=== PATIENT | female | born 1985 | race Caucasian/White ===

== ENCOUNTER 2024-02-02 13:18 | Emergency (ER) | payer OTHER, SELFPAY ==
[2024-02-02 13:24] VITALS: BP 137/76
--- NOTE | 2024-02-02 14:15 | ED.GENMED ---
History of Present Illness
General
Chief Complaint: Fever
Time Seen by Provider: 02/02/24 14:12
Travel History
Have you had any contact with someone who has COVID-19?: No
Do you have any symptoms of coronavirus? Fever > 100 degrees, chills, cough, shortness of breath, sore throat, loss of taste or smell, muscle aches, or headache?: Yes
Symptoms:: fever
History of Present Illness
History of Present Illness:
HPI: Patient presents with fever and URI symptoms associated with chest discomfort. Patient was sent here by urgent care because she had pleuritic chest. She reportedly had a COVID test at home that was negative and a flu test today at urgent care
that was negative. She says that she had a temperature of 102 �F earlier today
EXAM:
GENERAL: Well appearing in no distress
HEENT: Moist oral mucosa
CARDIOVASCULAR: No murmurs, normal heart rate, regular rhythm, No chest wall tenderness
PULMONARY: No respiratory distress, breath sounds are clear and equal
ABDOMEN: Soft with no peritoneal signs, no tenderness
NEUROLOGIC: Excellent strength all extremities, no coordination deficits
PSYCHIATRIC: Appropriate mental status, normal insight and judgement
EXTREMITIES: Nontender, no edema, moves all extremities equally
SKIN: No rash, no lesions
TIME OF INITIAL ENCOUNTER: 2:15 PM
NUMBER AND COMPLEXITY OF PROBLEMS ADDRESSED AT THE ENCOUNTER
� Chronic conditions affecting care: No significant chronical medical issues
� Acute Exacerbation and/or Progression of Chronic Illness: This is an acute problem
� Differential Diagnosis includes: Viral syndrome, pneumonia, PE, chest wall pain
AMOUNT AND/OR COMPLEXITY OF DATA TO BE REVIEWED AND ANALYZED
� I performed an independent evaluation of and my interpretation is:
EKG: Sinus 117, nonspecific ST abnormality with no old to compare
CT:
X-rays: Chest x-ray shows no acute abnormality
Laboratory Studies: White count is normal, hemoglobin normal, chemistries unremarkable, D-dimer reassuring
Other:
� Review of other/old records: I reviewed records, the patient had C-sections a few years ago
� Clinical information was obtained by an independent historian: None needed
� Prescriptions/Medications Considered but not given: Consider prescription for NSAIDs however the patient is already taking ibuprofen
� Further testing considered but not performed:
RISK OF COMPLICATIONS AND/OR MORBIDITY OR MORTALITY OF PATIENT MANAGEMENT
� Social determinants of health affecting care: Lives at home
� Discussion with other providers:
� Escalation of care including admission/observation vs risk of discharge considered: The patient was febrile earlier and reportedly had negative COVID and flu testing. She is tachycardic with clear lungs and some pleuritic
pain�will check D-dimer. Toradol was also given. On reassessment at 4:15 PM, the patient's heart rate has improved. D-dimer reassuring. The patient states she only has symptoms when she takes a deep breath. She reports no significant shortness
of breath. Her room air sats have been about 98%. She was given IV fluids and Toradol earlier and heart rate has improved.
Past History
Past History
ED Past Medical History: None
Social History
Tobacco: Non-smoker
Alcohol: None
Family History
Family History: Negative Diabetes, Hypertension or Early CAD
Phy Exam
Physical Exam
Physical Exam:
See HPI
Course
Orders/Labs/Results
Orders:
Orders
02/02/24 13:27
Electrocardiogram (*1) Urgent
Reason for Study: Chest Pain
EKG- Treatment ONCE
02/02/24 14:22
0.9% Sodium Chloride 1000 ml [Nss] 1,000 ml IV BOLUS
Ketorolac [Toradol] 15 mg IV NOW STA
CR Chest - 2 Views Urgent
Comment:
Reason For Exam: sob
02/02/24 15:13
Basic Metabolic Panel Urgent
Complete Blood Count/With Diff Urgent
D-Dimer Urgent
Abnormal Lab Results
02/02/24
15:13
MCV 80.1 L fL
(81.0-99.0)
MPV 11.3 H fL
(7.4-10.4)
Absolute Neuts (auto) 8.2 H 10^3/uL
(1.4-6.5)
Absolute Lymphs (auto) 0.8 L 10^3/uL
(1.2-3.4)
Neutrophils % 84.9 H %
(42.2-75.2)
Lymphocytes % 8.3 L %
(20.5-51.1)
Glucose 124 H mg/dl
(70-99)
02/02/24 15:13
02/02/24 15:13
Vital Signs
Initial and Last Documented VS:
Initial Vital Signs
Temp Pulse Resp BP Pulse Ox
99.1 F 122 16 137/76 98
02/02/24 13:24 02/02/24 13:24 02/02/24 13:24 02/02/24 13:24 02/02/24 13:24
Last Documented Vital Signs
Temp Pulse Resp BP Pulse Ox
99.1 F 95 18 115/70 98
02/02/24 13:24 02/02/24 15:17 02/02/24 15:17 02/02/24 15:17 02/02/24 15:17
*Critical Care Note
Total Time (30-74mins, 75-104mins- exclusive of procedures): Not Applicable
ED Attending Note
-
Portions of this chart may have been created with voice recognition software.� Occasional wrong word or��sound alike� substitutions may have occurred due to the inherent limitations of voice recognition software.
Discharge Plan
Departure
Patient Disposition: Home (Routine Discharge)
Date of Disposition: 02/02/24
Time of Disposition: 16:21
Patient with high blood pressure during this ER visit?: Yes
Discharge Problem:
Anterior chest wall pain
Prescriptions:
No Action
esomeprazole magnesium [Nexium] 40 MG capsule,delayed release(DR/EC)
40 mg PO DAILY
Calcium Gummies
500 mg PO DAILY
Iron Tab
27 mg PO DAILY
Gummies
1 PO DAILY AT 0700
ibuprofen 600 MG tablet
600 mg PO Q6HPRN PRN (Reason: cramps) 0RF
acetaminophen 325 MG capsule
325 mg PO Q4HPRN PRN (Reason: mild pain) Qty: 30 0RF
acetaminophen 325 MG tablet
650 mg PO Q4HPRN PRN (Reason: mild pain) 0RF
sennosides-docusate sodium 1 TABLET tablet
1 tab PO DAILYPRN PRN (Reason: constipation) 0RF
Referrals:
Rommel Mansfield MD [Family Provider] -
Activity Restrictions/Additional Instructions:
Please follow-up your primary care doctor. I recommend 3-4 lexp-aue-hjvfqpc ibuprofen (Motrin) every 8 hours with food for a few days. Return here if worse. Your white blood cell count is normal, your D-dimer is low meaning that there is no sign
of blood clot in your lungs. The radiologist read your chest x-ray is no sign of pneumonia.
Interventions
Interventions:
*Risk Screen - Suicide Last Done: 02/02/24 15:32
*General Assessment Last Done: 02/02/24 15:32
*Neglect/Abuse Screening Last Done: 02/02/24 15:32
ED- Fall Risk Assessment Last Done: 02/02/24 15:20
*ED COVID-19 Vaccine History Last Done: 02/02/24 13:24
ED- Neurological Assessment Last Done: 02/02/24 15:20
ED-Skin Assessment Last Done: 02/02/24 15:20
[2024-02-02] MEDS: TORADOL 15 MG IV (15:14)
[2024-02-02] MEDS: NSS 1000 IV (15:14)
[2024-02-02 15:17] VITALS: BP 115/70
[2024-02-02 15:26] LABS: % Basophils 0.3 % (0-2); % Eosinophils 0.4 % (0-6); % Immature Granulocytes 0.2 % (0-0.5); % Lymphocytes 8.3 % (20.5-51.1); % Monocytes 5.9 % (1.7-9.3); % Neutrophils 84.9 % (42.2-75.2); Absolute Lymphocytes 0.8 10^3/uL (1.2-3.4); Absolute Monocytes 0.6 10^3/uL (0.1-0.6); Absolute Neutrophils 8.2 10^3/uL (1.4-6.5); Hematocrit 37.5 % (37.0-47.0); Hemoglobin 12.8 g/dL (12.0-16.0); Mean Corp Hgb Conc. 34.1 g/dL (33.0-37.0); Mean Corpuscular Hgb 27.4 pg (27.0-31.0); Mean Corpuscular Volume 80.1 fL (81.0-99.0); Mean Platelet Volume 11.3 fL (7.4-10.4); Nucleated Red Blood Cells % 0 %; Platelet Count 171 10^3/uL (130-400); Red Blood Cell Count 4.68 10^6/uL (4.20-5.40); White Blood Cell Count 9.7 10^3/uL (4.8-10.8)
[2024-02-02 15:38] LABS: Blood Urea Nitrogen 10 mg/dl (7-17); Calcium 9.2 mg/dl (8.4-10.2); Carbon Dioxide 26 mmol/L (22-30); Chloride 105 mmol/L (98-107); Glucose 124 mg/dl (70-99); Potassium 4.5 mmol/L (3.5-5.1); Sodium 137 mmol/L (135-145); eGFR > 60.00
[2024-02-02 15:40] LABS: D-Dimer 0.28 ug/mlFEU (0.00-0.50)
== END 2024-02-02 16:36 | disposition home or self-care (01) ==
LOC: EMR 13:18
PROVIDERS: EMERGENCY PHYSICIAN Emergency Medicine; FAMILY PHYSICIAN Family Medicine
DX: R07.89 Other chest pain (principal); R50.9 Fever, unspecified; J06.9 Acute upper respiratory infection, unspecified; R03.0 Elevated blood-pressure reading, without diagnosis of hypertension
CPT/HCPCS: 99284; 96374; 96361; 71046; 80048; 85025; 85379; 93005

== ENCOUNTER → 2025-05-14 14:44 | Outpatient (REF) | payer OTHER, SELFPAY | LOC: HWRAD 14:44 | PROVIDERS: ATTENDING PHYSICIAN Nurse Practitioner Family | DX: R13.19 Other dysphagia (principal) | CPT/HCPCS: 76536 ==